=== PATIENT | female | born 1985 | race Caucasian/White ===

== ENCOUNTER 2018-01-06 15:58 | Emergency (ER) | payer BC, SELFPAY | END 2018-01-06 17:03 | disposition home or self-care (01) | LOC: ERS 15:58 | DX: L03.313 Cellulitis of chest wall (principal); Z71.6 Tobacco abuse counseling; F98.8 Other specified behavioral and emotional disorders with onset usually occurring in childhood and adolescence; F17.210 Nicotine dependence, cigarettes, uncomplicated | CPT/HCPCS: 99406 ==